=== PATIENT | male | born 1985 | race Caucasian/White ===

== ENCOUNTER 2016-12-14 01:03 | Emergency (ER) | payer OTHER | END 2016-12-14 01:58 | disposition home or self-care (01) | LOC: CFTX 01:03 | DX: S09.90XA Unspecified injury of head, initial encounter (principal); S01.01XA Laceration without foreign body of scalp, initial encounter; S01.412A Laceration without foreign body of left cheek and temporomandibular area, initial encounter; F17.210 Nicotine dependence, cigarettes, uncomplicated; F41.9 Anxiety disorder, unspecified; Y08.89XA Assault by other specified means, initial encounter; Y92.481 Parking lot as the place of occurrence of the external cause | CPT/HCPCS: 12001; 99283 ==